=== PATIENT | male | born 1985 | race Caucasian/White ===

== ENCOUNTER 2021-08-10 01:54 | Emergency (ER) | payer SELFPAY ==
[~2021-08-10] VITALS: Ht 167.6 cm; Wt 68.0 kg
[2021-08-10 01:51] VITALS: BP 126/86
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
[2021-08-10] MEDS ORDERED: IBUPROFEN 600 MG TABLET PO ONE (02:00)
[2021-08-10] MEDS ORDERED: ACETAMINOPHEN ES 500 MG TABLET PO ONE (02:00)
[2021-08-10] MEDS ORDERED: IBUPROFEN 600 MG TABLET ONE (02:02)
[2021-08-10] MEDS ORDERED: ACETAMINOPHEN ES 500 MG TABLET ONE (02:02)
--- NOTE | 2021-08-10 03:57 | NUR ---
PT CAN NO LONGER WAIT FOR CT RESULT AND WALKED OUT WITHOUT COMPLETING HIS TREATMENT. RISK AND BENIFITS EXPLAINED MULTIPLE TIMES BUT PATIENT CANT STILL WAIT.
--- NOTE | 2021-08-10 03:59 | NUR ---
Note rauloumar in EDM - 08/10/21 at 0414 by OLENA Patient does not wish to proceed with medical care and did not want to wait for XRay results as recommended by Dr. Aguirre. Patient given information related to possible complications, up to and including , which could occur as a result of leaving the hospital at this time. Patient verbalizes understanding of risks involved due to leaving against medical advice. Patient has signed AMA form.
== END 2021-08-10 04:07 | disposition left against medical advice (07) ==
LOC: ER 01:54
DX: M54.2 Cervicalgia (principal); Z60.2 Problems related to living alone; V49.59XA Passenger injured in collision with other motor vehicles in traffic accident, initial encounter; Y93.89 Activity, other specified; Y92.413 State road as the place of occurrence of the external cause; Y99.8 Other external cause status
CPT/HCPCS: 72125-TC